=== PATIENT | male | born 1955 | race Caucasian/White ===

== ENCOUNTER 2016-07-24 15:17 | Inpatient (IN) | payer OTHER ==
--- NOTE | ~2016-07-24 | HP ---
History And Physical [place] [address] [facility] [place]. [address] NAME: JUWAN JANG : 51 STATUS : ADM IN [facility]#: [id number] AGE: 61 ADM/REG DATE : 07/24/16 MR#: [id number] REPORT SERV DATE: 07/24/16 DICTATED BY: LAURY DUTTON DATE: 07/24/16 REPORT STATUS : Draft TRANSCRIBED BY: MODL DATE: 07/24/16 DATE OF ADMISSION: 07/24/2016 CHIEF COMPLAINT: Black stools for two days. HISTORY OF PRESENT ILLNESS: This is a very pleasant 61 years old gentleman, very poor historian, with past medical history significant for atrial fibrillation; coronary artery disease, he is only on N aspirin; history of hypertension; history of BPH; history of anxiety disorder; and prior history of GI bleed and peptic ulcer disease with hiatal hernia. Around 1990 to 1991, he had an extensive episode of GI bleed. At [facility] at that time, the patient underwent surgery by Dr. Berg. It sounds like Wendie fundoplication, but according to the patient, he had mesh, and he has had a fairly complicated hospital course. He was eventually recovered. 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 He saw Dr. Velásquez last week in fact, and he was scheduled for an upper scope on the of this month. However, for two to three days, he started to experience some black stools. He had some diarrhea before, but then for two to three days, he has this ongoing black stools and as a result, he presented to [facility] today. He has not had any chest pain or more increasing shortness of breath. No PND or orthopnea. No nausea or vomiting. He did not have any hematemesis or red blood per rectum. No increased urinary frequency or urgency. No other complaints. The patient has been evaluated in the emergency room and Hospitalist Service has been asked for admission, further evaluation, and treatment. PAST MEDICAL HISTORY: Significant for hypertension, coronary artery disease, atrial fibrillation, history of hiatal hernia, history of GI bleed, history of peptic ulcer disease, history of H pylori, history of Reina esophagus, and history of BPH. PAST SURGICAL HISTORY: Includes abdominal surgery, hernia repair, and also on abdominal anterior wall hernia repair. SOCIAL HISTORY: Denies tobacco, alcohol, or IV drugs. ALLERGIES: HE IS ALLERGIC TO PERCOCET. FAMILY HISTORY: Significant for cancer and coronary artery disease. MEDICATIONS: At home include Xanax, aspirin, Lasix, [place], Imdur, Claritin, Lopressor, Zofran, potassium chloride, Pravachol, AcipHex, Flomax, and vitamin E. REVIEW OF SYSTEMS: A 14-point review of systems has been obtained and pertinent positive has been listed into the history of present illness. Otherwise, negative except those underlying above. OBJECTIVE: VITAL SIGNS: The patient is afebrile, blood pressure 122/80, heart rate 76, respiratory rate 16, and saturating 98% on room air. GENERAL: He is a very pleasant, well-developed, well-nourished gentleman, in no acute History And Physical [address] [address] NAME: JUWAN JANG : 51 STATUS : ADM IN [facility]#: [id number] AGE: 61 ADM/REG DATE : 07/24/16 MR#: [id number] REPORT SERV DATE: 07/24/16 DICTATED BY: LAURY DUTTON DATE: 07/24/16 REPORT STATUS : Draft TRANSCRIBED BY: ALONDRA DATE: 07/24/16 distress. He is alert and oriented x3. He is nonfocal. He follows all his commands appropriately. HEENT: Shows pupils equal, round, reactive to light. Extraocular movements intact. No JVD. No lymphadenopathy. No thyromegaly appreciated. CHEST: Eval shows bilateral air entry. Clear anteroposterior. No wheezes, crackles, or rhonchi appreciated. CARDIOVASCULAR: He is regular rate and rhythm. S1, S2 positive. No S3, no S4. No murmurs, rubs, or gallops appreciated. ABDOMEN: Soft. Mild epigastric tenderness. A well-healed scar anteriorly. No tenderness, no guarding, no rebound. EXTREMITIES: No clubbing, cyanosis, or edema. NEUROLOGIC: The patient is alert and oriented x3. He is nonfocal. He follows all his commands appropriately. LABORATORY DATA: Labs from today include sodium of 137, potassium 4, chloride 104, CO2 of 29, BUN 9, creatinine 1.28, glucose is 100. His total bilirubin is 0.4, alkaline phosphatase 98, ALT 19, AST 17. His white count is 8.3, hemoglobin 14.7, hematocrit 43.7, platelets are 234. His INR is 1. ASSESSMENT: This is a very pleasant 61-year-old gentleman with: 1. Likely upper gastrointestinal bleed. 2. History of peptic ulcer disease, hiatal hernia, and Reina esophagus. 3. History of coronary artery disease. 4. History of hypertension. 5. History of hyperlipidemia. 6. Benign prostatic hypertrophy. PLAN: 1. The patient is going to be admitted to Hospitalist Service. We are going to keep him on clear liquid diet per Dr. Velásquez's recommendation. We are going to place him on Protonix drip. H and H q.6 hours and transfuse as indicated. Check all anemia studies. Consult Dr. Velásquez GI, with whom I talked personally, who is going to come and evaluate the patient in consult. Provide supportive treatment, pain and nausea control. 2. History of coronary artery disease. We are going to continue his home medication. Hold his aspirin. We are going to check a set of cardiac enzymes. Continue Imdur. Continue beta-katie. 3. History of hypertension. Continue his home medication. Provide p.r.n. hydralazine as needed. 4. History of hyperlipidemia. Continue his home medication. 5. History of BPH. Continue his home medication. We are going to provide reasonable pain and nausea control as well as GI and DVT prophylaxis with SCDs. That has been discussed extensively with the patient as well as the patient's family. All the questions have been answered in full. Further workup and recommendation pending above. It is worthwhile to note that the patient is going to be followed by Hospitalist Service. History And Physical [address] [address] NAME: JUWAN JANG : 51 STATUS : ADM IN PAT#: [id number] AGE: 61 ADM/REG DATE : 07/24/16 MR#: [id number] REPORT SERV DATE: 07/24/16 DICTATED BY: LAURY DUTTON DATE: 07/24/16 REPORT STATUS : Draft TRANSCRIBED BY: ALONDRA DATE: 07/24/16 ARIAN/ALONDRA Laury Dutton M.D. / [id number] CC: Timmy Estrada M.D.
--- NOTE | ~2016-07-24 | DS ---
Discharge Summary [facility] [address] [place]. [address] NAME: JUWAN JANG : 51 STATUS : ADM IN PAT#: [id number] AGE: 61 ADM/REG DATE : 07/24/16 MR#: [id number] REPORT SERV DATE: 07/26/16 DICTATED BY: LATOYA WOODWARD DATE: 07/26/16 REPORT STATUS : Draft TRANSCRIBED BY: MODL DATE: 07/26/16 ADMISSION DATE: 07/24/2016 DISCHARGE DATE: 07/26/2016 DISCHARGE DIAGNOSES: 1. Upper gastrointestinal bleed with melena. 2. Paroxysmal atrial fibrillation/atrial flutter with rapid ventricular response. 3. Chronic abdominal pain. 4. Hypertension. 5. History of coronary artery disease. 6. Hypertension. 7. Benign prostatic hypertrophy. 8. Generalized anxiety disorder. 9. History of renal stones treated with ESWL. 10.Chronic back, abdominal, and left leg pain. 11.Transient hypokalemia. HISTORY: This patient describes a history of severe upper gastrointestinal bleed in 1990, treated with surgery at [facility]. He reports that subsequent to that, he has had multiple abdominal hernia repairs and mesh, and has ongoing chronic abdominal pain. He states three days prior to this admission, he started to notice black stools. He had been having a little worse periumbilical pain over the last two to three weeks. He had nausea for three days prior to this admission. No emesis. He denies taking any prescription or [id number] anti-inflammatories other than an aspirin a day. He came to the emergency room and because of his history and melena, the patient was referred to our team for inpatient care. He was placed on a Protonix drip. He was seen by his GI doctor, Dr. Velásquez and Dr. Alcala covering also for the weekend, they both indicated since the patient was hemodynamically stable and his hemoglobin had not dropped significantly, they planned to do outpatient EGD. I spoke with Dr. Alcala about this myself, asked him to consider inpatient EGD, but he stated for the above reasons, he felt outpatient was fine. The patient's hemoglobin on presentation 14.7, at lowest it was 13.8, at discharge it was 14.4. His INR is 1.2, and PTT is slightly elevated at 38.8. The patient is eating, ambulating, not feeling lightheaded. Blood pressures are in the normal range. He is not tachycardic. The patient reported a history of paroxysmal atrial fibrillation and indeed while here he had bouts of supraventricular tachycardia consistent with atrial flutter and atrial fibrillation with rapid ventricular response. On the evening of 07/25/2016, he noticed the palpitations, but had no angina, no shortness of breath, and spontaneously converted into normal sinus rhythm before any intervention. I talked with the patient about this and his by phone, and described that we needed to increase his metoprolol for rate control, and then after GI feels that the cause of the bleeding has been found, and if it is well Discharge Summary [address] [place]. [address] NAME: JUWAN JANG : 51 STATUS : ADM IN PAT#: [id number] AGE: 61 ADM/REG DATE : 07/24/16 MR#: [id number] REPORT SERV DATE: 07/26/16 DICTATED BY: LATOYA WOODWARD DATE: 07/26/16 REPORT STATUS : Draft TRANSCRIBED BY: ALONDRA DATE: 07/26/16 controlled, and if they agree then the patient would be considered a candidate for anticoagulation. However, his CHADS-VASc score is only one at this point in time. He has a followup appointment already scheduled with Dr. Velásquez and EGD already scheduled as an outpatient according to the patient and . DISCHARGE MEDICATIONS: Imdur 60 mg daily, Claritin 10 mg daily, metoprolol has been increased to 25 mg b.i.d., Pravachol 40 mg daily at bedtime, Flomax 0.4 mg at bedtime, Tylenol 650 q.6 hours p.r.n. mild pain, Xanax 0.5 mg b.i.d. p.r.n. anxiety which is a chronic medicine for him, [place] 7.5 t.i.d. p.r.n. pain which is a chronic medicine for him, ondansetron 4 mg q.6 hours p.r.n. nausea, AcipHex has been increased from once a day to 20 mg twice a day until this GI evaluation is resolved, Lasix 20 mg he takes on Wednesday, Wednesday, and Wednesday; potassium 20 mEq he takes on Wednesday, Wednesday, and Wednesday along with the Lasix, vitamin E 400 units p.o. daily. I spent 57 minutes today with the patient, and with his family, and with his night nurse, and with discharge plan. DICTATED BY: Timmy EstradaG/ALONDRA Latoya Woodward M.D. / [id number] CC: Timmy Estrada M.D. Dannis Hood Jr., M.D. Matthew Bagamery, M.D. Con Choi M.D.
[2016-07-24 14:25] LABS: BASOPHILS 0.1 %; BASOPHILS ABSOLUTE 0.01 10/3/uL (0.0-0.16); EOSINOPHILS 0.4 %; EOSINOPHILS ABSOLUTE 0.03 10/3/uL (0.0-0.53); ER CBC TAT 0 Hrs 03 Mins; HEMATOCRIT 43.7 % (40.0-51.0); HEMOGLOBIN 14.7 g/dL (13.6-17.8); IMMATURE GRANULOCYTES 0.4 %; IMMATURE GRANULOCYTES ABSOLUTE 0.03 10/3/uL (0.0-0.11); LYMPHOCYTES 12.8 %; LYMPHOCYTES ABSOLUTE 1.06 10/3/uL (0.67-4.30); MANUAL DIFF NO %; MEAN CORPUS HGB CONC 33.6 g/dL (32.0-36.0); MEAN CORPUSCULAR HEMOGLOB 30.2 pg (26.0-34.0); MEAN CORPUSCULAR VOLUME 89.9 fL (80-100); MEAN PLATELET VOLUME 10.3 fL (9.2-13.0); MONOCYTES 19.3 %; NEUTROPHILS ABSOLUTE 5.56 10/3/uL (2.02-8.40); PLATELET COUNT 234 10/3/uL (150-400); RBC DISTRIBUTION WIDTH 13.3 % (12.0-16.0); RED CELL COUNT 4.86 10/6/uL (4.7-6.1); WHITE BLOOD CELLS 8.3 10/3/uL (4.5-10.5)
[2016-07-24 14:33] LABS: INTERNATIONAL NORMAL RATI 1.1 UNITS (-); PROTIME (NOT ORD) 14.3 SEC (12.0-14.5)
[2016-07-24 14:34] LABS: PARTIAL THROMBO TIME 38.8 SEC (22.5-37.2)
[2016-07-24 14:49] LABS: A/G RATIO 0.8 (0.7-1.9); ALBUMIN 3.2 G/DL (3.5-5.0); ALKALINE PHOSPHATASE 98 U/L (45-117); BUN (BLOOD UREA NITROGEN) 9 MG/DL (6-23); CALCIUM, SERUM 8.7 MG/DL (8.5-10.4); CHLORIDE, SERUM 104 MMOL/L (96-112); CO2 (CARBON DIOXIDE) 29 MMOL/L (24-34); CREATININE 1.28 MG/DL (0.70-1.30); GFR AFRICAN AMERICAN 69 ML/MIN (>=60); GFR NON AFRICAN AMERICAN 59 ML/MIN (>=60); GLUCOSE, SERUM 100 MG/DL (60-99); SGPT(ALT) 19 U/L (5-65); SODIUM, SERUM 137 MMOL/L (135-148); TOTAL BILIRUBIN 0.4 MG/DL (0-1.2); TOTAL PROTEIN 7.2 G/DL (6.0-8.5)
[2016-07-24 14:50] LABS: SGOT(AST) 17 U/L (5-40)
[~2016-07-24 15:17] MED LIST: ACIPHEX PO; CLARIT10 PO; COREG6 PO; FLOMAX4 PO; HALF81 PO; IMDUR60 PO; KAPIDEX60 MG PO; KLOR-CON M2020 MEQ PO; L20 PO; LOP25 PO; LORT7 PO; NORCO1 TA2 PO; PACERONE200 MG PO; PR25 PO; PRAVAC PO; PRAVACHOL40 MG PO; PRIN5 PO; VITAMIN B-121000 MC1 SL; VITE PO; X5 PO; ZOFRAN4 PO
[2016-07-24 20:40] LABS: FERRITIN 118 NG/ML (26-388); PHOSPHORUS, SERUM 2.2 MG/DL (2.5-4.5)
[2016-07-24 20:41] LABS: IRON BINDING CAPACITY 271 MCG/DL (250-450); IRON, SERUM 24 MCG/DL (35-150)
[2016-07-24 21:18] LABS: TROPONIN I <0.02 NG/ML (<0.05)
[2016-07-24 21:19] LABS: FOLATE 5.5 NG/ML (>5.2)
[2016-07-24 21:43] LABS: FREE T4 1.33 NG/DL (0.76-1.46)
[2016-07-24 21:53] LABS: B NATRIURETIC PEPTIDE (BNP) 30.1 PG/ML (< 100.0)
[2016-07-25 01:59] LABS: BASOPHILS 0.2 %; BASOPHILS ABSOLUTE 0.01 10/3/uL (0.0-0.16); EOSINOPHILS 1.6 %; HEMATOCRIT 42.7 % (40.0-51.0); HEMOGLOBIN 14.3 g/dL (13.6-17.8); IMMATURE GRANULOCYTES 0.2 %; IMMATURE GRANULOCYTES ABSOLUTE 0.01 10/3/uL (0.0-0.11); LYMPHOCYTES 24.7 %; LYMPHOCYTES ABSOLUTE 1.54 10/3/uL (0.67-4.30); MEAN CORPUS HGB CONC 33.5 g/dL (32.0-36.0); MEAN CORPUSCULAR HEMOGLOB 30.4 pg (26.0-34.0); MEAN CORPUSCULAR VOLUME 90.7 fL (80-100); MEAN PLATELET VOLUME 9.9 fL (9.2-13.0); MONOCYTES ABSOLUTE 1.12 10/3/uL (0.21-1.20); NEUTROPHILS 55.3 %; NEUTROPHILS ABSOLUTE 3.45 10/3/uL (2.02-8.40); PLATELET COUNT 217 10/3/uL (150-400); RED CELL COUNT 4.71 10/6/uL (4.7-6.1); WHITE BLOOD CELLS 6.2 10/3/uL (4.5-10.5)
[2016-07-25 02:00] LABS: MANUAL DIFF NO %
[2016-07-25 02:03] LABS: INTERNATIONAL NORMAL RATI 1.2 UNITS (-); PROTIME (NOT ORD) 14.6 SEC (12.0-14.5)
[2016-07-25 02:04] LABS: BUN (BLOOD UREA NITROGEN) 8 MG/DL (6-23); CALCIUM, SERUM 8.3 MG/DL (8.5-10.4); CHLORIDE, SERUM 108 MMOL/L (96-112); CO2 (CARBON DIOXIDE) 26 MMOL/L (24-34); CREATININE 1.13 MG/DL (0.70-1.30); GFR AFRICAN AMERICAN 80 ML/MIN (>=60); GFR NON AFRICAN AMERICAN 69 ML/MIN (>=60); GLUCOSE, SERUM 93 MG/DL (60-99); POTASSIUM, SERUM 3.4 MMOL/L (3.5-5.3); SODIUM, SERUM 140 MMOL/L (135-148)
[2016-07-25 06:00] LABS: ASCORBIC ACID (UR NOT ORDER) NEG (NEG); BILIRUBIN, URINE NEGATIVE (NEG); KETONE, URINE NEGATIVE (NEG); LEUKOCYTE ESTERASE(NOT OR NEG (NEG); WBC (NOT ORDERED) (RFLEX) < 1 (0-5)
[2016-07-25 07:55] LABS: HEMATOCRIT 41.4 % (40.0-51.0); HEMOGLOBIN 13.8 g/dL (13.6-17.8)
[2016-07-25 11:28] LABS: GLYCOHEMOGLOBIN (HbA1c) 6.1 % (4.7-6.1)
[2016-07-25 17:06] LABS: HEMOGLOBIN 14.9 g/dL (13.6-17.8)
[2016-07-25 17:12] LABS: HEMATOCRIT 46.1 % (40.0-51.0)
[2016-07-26 07:18] LABS: HEMATOCRIT 43.7 % (40.0-51.0); HEMOGLOBIN 14.4 g/dL (13.6-17.8); MEAN CORPUSCULAR HEMOGLOB 30.2 pg (26.0-34.0); MEAN CORPUSCULAR VOLUME 91.6 fL (80-100); MEAN PLATELET VOLUME 10.2 fL (9.2-13.0); PLATELET COUNT 254 10/3/uL (150-400); RBC DISTRIBUTION WIDTH 13.2 % (12.0-16.0); RED CELL COUNT 4.77 10/6/uL (4.7-6.1); WHITE BLOOD CELLS 6.3 10/3/uL (4.5-10.5)
[2016-07-26 07:20] LABS: MANUAL DIFF YES %
[2016-07-26 07:25] LABS: BUN (BLOOD UREA NITROGEN) 10 MG/DL (6-23); CALCIUM, SERUM 8.7 MG/DL (8.5-10.4); CHLORIDE, SERUM 109 MMOL/L (96-112); CO2 (CARBON DIOXIDE) 28 MMOL/L (24-34); CREATININE 1.11 MG/DL (0.70-1.30); GFR AFRICAN AMERICAN 81 ML/MIN (>=60); GFR NON AFRICAN AMERICAN 70 ML/MIN (>=60); GLUCOSE, SERUM 101 MG/DL (60-99); POTASSIUM, SERUM 3.6 MMOL/L (3.5-5.3); SODIUM, SERUM 143 MMOL/L (135-148)
[2016-07-26 07:47] LABS: BAND NEUTROPHILS 8 %; LYMPHOCYTES 19 %; MONOCYTES 12 %; MONOCYTES ABSOLUTE (CALC) 0.76 10/3/uL (0.21-1.20); NEUTROPHILS ABSOLUTE (CALC) 4.35 10/3/uL (2.02-8.40); PLATELET ESTIMATE ADQ (ADEQUATE); RBC MORPHOLOGY NORM (NORMAL); SEGMENTED NEUTROPHIL (0) 61 %; TOTAL NUCLEATED CELLS 100
[2016-07-26] MEDS ORDERED: T PO (09:40)
== END 2016-07-26 10:04 | disposition home or self-care (01) | DRG 378 ==
LOC: ER 15:17 → 6NO 17:43
PROVIDERS: Hospitalist; Internal Medicine
DX: K92.1 Melena (principal); I48.92 Unspecified atrial flutter; I47.1 Supraventricular tachycardia; I10 Essential (primary) hypertension; I48.0 Paroxysmal atrial fibrillation; I25.10 Atherosclerotic heart disease of native coronary artery without angina pectoris; N40.0 Benign prostatic hyperplasia without lower urinary tract symptoms; F41.1 Generalized anxiety disorder; Z87.442 Personal history of urinary calculi; E87.6 Hypokalemia; M54.9 Dorsalgia, unspecified; M79.605 Pain in left leg; Z87.11 Personal history of peptic ulcer disease; K44.9 Diaphragmatic hernia without obstruction or gangrene; K22.70 Barrett's esophagus without dysplasia; Z88.5 Allergy status to narcotic agent; G89.29 Other chronic pain
CPT/HCPCS: 36415; 71010; 80048; 80053; 81001; 82607; 82728; 82746; 83036; 83540; 83550; 83615; 83735; 83880; 84100; 84132; 84439; 84443; 84484; 85014; 85018; 85025; 85610; 85730; 86850; 86900; 86901; 93005; 96365; 96366; 99285; A9270-GY; C9113